=== PATIENT | female | born 1960 | race Two or more races ===

== ENCOUNTER 2018-09-18 06:54 | Day surgery (SDC) | payer OTHER ==
[~2018-09-18 06:54] MED LIST: ASPIR 8181 MG PO; CALTRATE 600+D1 EAC1 PO; CIPRO500 MG PO; COZAAR100 MG PO; CYMBALTA60 MG PO; FOLIC ACID1 MG PO; GLUCOPHA PO; JARDIANCE25 MG PO; LIPITOR20 MG PO; PRILOSE PO; ZANTAC300 MG PO; [UNRECOGNIZED DRUG - OTHER] PO
== END 2018-09-18 16:55 | disposition home or self-care (01) ==
LOC: CIR.AMB 06:54
DX: N87.1 Moderate cervical dysplasia (principal)